=== PATIENT | male | born 1975 | race Caucasian/White ===

== ENCOUNTER 2024-04-30 19:04 | Emergency (ER) | payer SELFPAY ==
[~2024-04-30] VITALS: Ht 170.2 cm; Wt 81.6 kg
[~2024-04-30 19:04] MED LIST: ALBUTEROL; AZIT250T PO; FLUT1DIS3 IH; MONT-46 PO
[2024-04-30 19:15] VITALS: TEMP 36.7; O2SAT 98
[2024-04-30] MEDS ORDERED: AMOX-494 MT (22:32)
[2024-04-30] MEDS ORDERED: AMOX1TAB16 MT (22:34)
[2024-04-30] MEDS: TETANUS, DIPHTHERIA, PERTUSSIS VAC/PF 0.5ML (>10YR OLD) IM ONE (22:58)
[2024-04-30] MEDS: BACITRACIN ZINC OINT UDPKT TOP ONE (22:58)
[2024-04-30] MEDS: LIDOCAINE HCL/PF 1% 10 MG/ML 5ML VIAL INFIL ONE (22:59)
[2024-04-30 23:06] VITALS: BP 157/87; PULSE 84; RESP 16; O2SAT 97
== END 2024-04-30 23:12 | disposition home or self-care (01) ==
LOC: ER 19:04
DX: S01.511A Laceration without foreign body of lip, initial encounter (principal); Z79.899 Other long term (current) drug therapy; W54.0XXA Bitten by dog, initial encounter; Y93.89 Activity, other specified; Y92.89 Other specified places as the place of occurrence of the external cause; Y99.8 Other external cause status
CPT/HCPCS: 90715; 12013; 90471; 99283; J2003; Z7610

== ENCOUNTER 2024-05-11 16:29 | Emergency (ER) | payer SELFPAY ==
[~2024-05-11] VITALS: Ht 167.6 cm; Wt 81.0 kg
[~2024-05-11 16:29] MED LIST changes: +AMOX1TAB16 MT
[2024-05-11 16:34] VITALS: O2SAT 98
[2024-05-11 16:39] VITALS: BP 144/85; PULSE 99; RESP 12; TEMP 37.1; O2SAT 97
== END 2024-05-11 17:32 | disposition home or self-care (01) ==
LOC: ER 16:29
DX: S01.511D Laceration without foreign body of lip, subsequent encounter (principal); Z79.51 Long term (current) use of inhaled steroids; Z79.899 Other long term (current) drug therapy; X58.XXXD Exposure to other specified factors, subsequent encounter
CPT/HCPCS: 99281